=== PATIENT | female | born 1970 | race Caucasian/White ===

== ENCOUNTER 2021-06-13 05:54 | Day surgery (SDC) | payer OTHER, SELFPAY ==
[~2021-06-13] VITALS: Ht 149.9 cm; Wt 74.8 kg
[2021-06-13 06:59] LABS: HCG,QUAL RESULT NEGATIVE (NEGATIVE)
[2021-06-13] MEDS ORDERED: BUPIVACAINE /PF 0.25% 30 ML VIAL INJ ONE (07:41)
[2021-06-13] MEDS ORDERED: MIDAZOLAM HCL 5 MG/5 ML VIAL IVP ONE (07:41)
[2021-06-13] MEDS ORDERED: SUCCINYLCHOLINE CHLORIDE 20 MG/ML(QUELICIN) IVP ONE (07:41)
[2021-06-13] MEDS ORDERED: SUGAMMADEX SODIUM 200 MG/2 ML VIAL IV ONE (07:41)
[2021-06-13] MEDS ORDERED: GLYCOPYRROLATE 0.2 MG/ML VIAL IJ ONE (07:41)
[2021-06-13] MEDS ORDERED: DEXAMETHASONE SOD PHOSPHATE 4 MG/ML VIAL IVP ONE (07:41)
[2021-06-13] MEDS ORDERED: PHENYLEPHRINE HCL 10 MG/ML VIAL (NEOSYNEPHRINE) IV ONE (07:41)
[2021-06-13] MEDS ORDERED: CEFAZOLIN 2 GM IVPB PREMIX 50 ML IV ONE (07:41)
[2021-06-13] MEDS ORDERED: ONDANSETRON HCL 4 MG/2 ML VIAL IVP ONE (07:41)
[2021-06-13] MEDS ORDERED: fentaNYL CITRATE/PF 100 MCG/2 ML AMP IVP ONE (07:41)
[2021-06-13] MEDS ORDERED: LR 1,000 ML IV.SOLN IV ONE (07:41)
[2021-06-13] MEDS ORDERED: SEVOFLURANE 15 MIN GAS INH ONE (07:41)
[2021-06-13] MEDS ORDERED: PROPOFOL 200MG/ 20ML VIAL (DIPRIVAN) IV ONE (07:41)
[2021-06-13] MEDS ORDERED: ROCURONIUM BROMIDE 10 MG/ML (ZEMURON) IV ONE (07:41)
[2021-06-13] MEDS ORDERED: MEPERIDINE HCL/PF 25 MG/ML DISP.SYRIN IVP ONE (07:41)
[2021-06-13] MEDS ORDERED: WATER FOR IRRIGATION,STERILE 1,000 ML IRRIG.SOLN IR ONE (07:41)
[2021-06-13] MEDS ORDERED: KETOROLAC TROMETHAMINE 30 MG VIAL IVP ONE (07:41)
[2021-06-13] MEDS ORDERED: METOCLOPRAMIDE HCL 10 MG/2 ML VIAL IVP ONE (07:41)
[2021-06-13] MEDS ORDERED: OXYCODONE/ACETAMINOPHEN 5-325 TABLET PO PRN ×2 (09:30)
[2021-06-13] MEDS ORDERED: ONDANSETRON HCL 4 MG/2 ML VIAL IM PRN (09:30)
[2021-06-13] MEDS ORDERED: IBUPROFEN 800 MG TABLET PO PRN (09:30)
[2021-06-13 11:31] VITALS: BP_SYST 131
== END 2021-06-13 12:50 | disposition home or self-care (01) ==
LOC: SDS 05:54
PROVIDERS: ATTEND Obstetrics & Gynecology
DX: N95.0 Postmenopausal bleeding (principal); D25.9 Leiomyoma of uterus, unspecified; J45.909 Unspecified asthma, uncomplicated; E66.01 Morbid (severe) obesity due to excess calories; E78.5 Hyperlipidemia, unspecified; F32.9 Major depressive disorder, single episode, unspecified; Z79.899 Other long term (current) drug therapy; Z20.822 Contact with and (suspected) exposure to COVID-19
CPT/HCPCS: 36415 ×2; 58674; 84703; 86886 ×2; 86900 ×2; 86901 ×2; C1727; J0330; J0690; J1100; J1885; J2175; J2250; J2370; J2405; J2704; J2765; J3010; J3490 ×3; J7120; U0003

== ENCOUNTER 2022-07-28 11:25 | Inpatient (IN) | payer OTHER ==
[~2022-07-28] VITALS: Ht 180.3 cm; Wt 74.4 kg
[2022-07-28 11:29] VITALS: BP_SYST 128
--- NOTE | 2022-07-28 11:44 | NUR ---
Placed in room 05 . Placed on nurse monitoring, blood pressure machine and pulse oximeter. To gown for exam. Side rails up. Report given to Meryl GONZALEZ.
--- NOTE | 2022-07-28 12:05 | NUR ---
pt presents to ed WITH DAUGHTER FROM HOME WITH NONSTOP MENSES BLEEDING, PT C/O HAVING SOB, WEAKNESS AND RACING HEART, PT STATES SHE WAS USING LYSTEDA FROM 07/14 TO 07/19 2022, PT STATES SHE HAS HAD HER PERIOD FOR OVER 14 DAYS AND IS USING SUPER TAMPON ALONG WITH PAD. SHE C/O CONTINOUS MENSES. PT APPEARS PALE, VSS, RESPIRATIONS ARE EVEN AND UNLABORED, WILL CONT TO MONITOR
[2022-07-28 12:19] LABS: CALCIUM 8.5 mg/dL (8.4-11.0); CREATININE 0.85 mg/dL (0.55-1.30)
[2022-07-28 12:24] LABS: ALBUMIN 3.3 g/dL (3.4-4.8); TOTAL BILIRUBIN 0.3 mg/dL (0.0-1.0)
[2022-07-28 12:26] LABS: BASOPHILS # (AUTO) 0.1 K/uL (0.0-0.2); BASOPHILS % (AUTO) 0.4 % (0.0-2.0); EOSINOPHILS % (AUTO) 0.2 % (0.0-4.0); LYMPHOCYTES # (AUTO) 1.8 K/uL (1.0-5.5); LYMPHOCYTES % (AUTO) 11.2 % (20.5-51.5); MEAN CORPUSCULAR HEMOGLOBIN 31 pg (27-31); MEAN CORPUSCULAR HGB CONC 33 % (32-36); MEAN CORPUSCULAR VOLUME 94 fL (79.0-98.0); MONOCYTES # (AUTO) 0.9 K/uL (0.0-1.0); MONOCYTES % (AUTO) 5.5 % (1.7-9.3); NEUTROPHILS % (AUTO) 82.7 % (40.0-70.0); PLATELET COUNT (AUTO) 330 K/uL (130-430); RED CELL DISTRIBUTION WIDTH 13.8 % (9.0-15.0); WHITE BLOOD COUNT (AUTO) 15.7 K/uL (4.8-10.8)
[2022-07-28 12:35] LABS: HEMATOCRIT 19.6 % (36-48); HEMOGLOBIN 6.5 g/dL (12.0-16.0)
[2022-07-28 12:39] LABS: PROTHROMBIN TIME 10.3 SECS (9.5-12.5)
--- NOTE | 2022-07-28 14:23 | NUR ---
COVID SWAB COLLECTED AND SENT TO LAB
[2022-07-28] MEDS ORDERED: POTASSIUM CHLORIDE 20 MEQ TAB.PRT.SR PO ONE (14:45)
--- NOTE | 2022-07-28 14:47 | NUR ---
1440 BLOOD TRANSFUSTION STARTEDConsent signed per SHERI KENT agreeing to administration of blood. Blood has been type and crossmatched. Blood sent from blood bank. Information on unit of blood checked against patient wristband at bedside by two nurses. All information matches. Patient or responsible alliance party informed of potential complications associated with blood transfusion. Informed of possible transfusion reaction symptoms. Aware of need to notify nurse at once of itching, shortness of breath, flushing, feeling of impending doom, or other symptoms not previously present. Vital signs taken within 5 minutes prior to initiation of transfusion. RN will remain with patient for first 15 minutes of transfusion at which time vital signs will be re-assessed. WILL CONTINUE TO MONITOR
[2022-07-28 15:17] LABS: TOTAL IRON BIND. CAPACITY 348 ug/dL (250-450)
--- NOTE | 2022-07-28 15:32 | NUR ---
PT IS TOLERATING BLOOD TRANSFUSION WELL, VSS PT RESTING IN BED NO COMPLAINTS. WILL CONTINUE TO MONITOR.
--- NOTE | 2022-07-28 17:35 | NUR ---
Consent signed per SHERI KENT agreeing to administration of blood. Blood has been type and crossmatched. Blood sent from blood bank. Information on unit of blood checked against patient wristband at bedside by two nurses. All information matches. Patient or responsible republican informed of potential complications associated with blood transfusion. Informed of possible transfusion reaction symptoms. Aware of need to notify nurse at once of itching, shortness of breath, flushing, feeling of impending doom, or other symptoms not previously present. Vital signs taken within 5 minutes prior to initiation of transfusion. RN will remain with patient for first 15 minutes of transfusion at which time vital signs will be re-assessed.
[2022-07-28 17:56] LABS: BILIRUBIN,URINE NEGATIVE (NEGATIVE); BLOOD, URINE NEGATIVE (NEGATIVE); CLARITY/URINE CLEAR (CLEAR); COLOR,URINE YELLOW (YELLOW); GLUCOSE,URINE NEGATIVE (NEGATIVE); KETONES,URINE 1+ (NEGATIVE); LEUKOCYTE ESTERASE ,URINE NEGATIVE (NEGATIVE); NITRITE, URINE NEGATIVE (NEGATIVE); PH,URINE 5.5 (5.0-8.0); PROTEIN URINE NEGATIVE (NEGATIVE); UROBILINOGEN,URINE 0.2 (0.2-1.0)
--- NOTE | 2022-07-28 18:02 | NUR ---
PT TOLERATING BLOOD TRANSFUSION WELL, NO COMPLAINTS, VSS NAD. CALLED DR BURKETT ABOUT CLARIFICATION ABOUT DR HU [address] FITZGERALD 2 ADDITIONAL PRBC ORDER. PT IS PENDING DISCHARGE. AWAITING CALL AND WILL CONTINUE TO MONITOR PT.
--- NOTE | 2022-07-28 19:40 | NUR ---
LABS ARE SCHEDULED FOR POST TRANSFUSION. DR WALLS OVER TELEPHONE STATED AFTER LABS ARE DRAWN AND HEMOGLOBIN AND HEMATOCRIT OVER 8 PT CAN BE D/C AND FOLLOW UP WITH NEW LABS AFTER 2 DAYS AND REFERED TO OB. IF HEMOGLOBIN IS BELOW [address] WALLS FOR ORDERS.
[2022-07-28 21:21] LABS: BASOPHILS # (AUTO) 0.1 K/uL (0.0-0.2); BASOPHILS % (AUTO) 0.4 % (0.0-2.0); EOSINOPHILS % (AUTO) 0.2 % (0.0-4.0); HEMATOCRIT 27.3 % (36-48); HEMOGLOBIN 9.2 g/dL (12.0-16.0); LYMPHOCYTES # (AUTO) 4.1 K/uL (1.0-5.5); LYMPHOCYTES % (AUTO) 22.1 % (20.5-51.5); MEAN CORPUSCULAR HEMOGLOBIN 30 pg (27-31); MEAN CORPUSCULAR HGB CONC 34 % (32-36); MONOCYTES # (AUTO) 1.7 K/uL (0.0-1.0); MONOCYTES % (AUTO) 9.3 % (1.7-9.3); NEUTROPHILS # (AUTO) 12.4 K/uL (1.8-7.7); PLATELET COUNT (AUTO) 287 K/uL (130-430); RED BLOOD CELL COUNT(AUTO) 3.08 MIL/uL (4.2-6.2); RED CELL DISTRIBUTION WIDTH 15.3 % (9.0-15.0); WHITE BLOOD COUNT (AUTO) 18.3 K/uL (4.8-10.8)
[2022-07-28 21:22] LABS: MEAN CORPUSCULAR VOLUME 89 fL (79.0-98.0)
[2022-07-28 21:56] VITALS: BP_SYST 134
--- NOTE | 2022-07-28 21:56 | NUR ---
Patient given written and verbal discharge instructions and verbalizes understanding. ER MD discussed with patient the results and treatment provided. Patient in stable condition. ID arm band removed. IV catheter removed intact and dressing applied, no active bleeding. Patient educated on pain management and to follow up with PMD. Pain Scale . Opportunity for questions provided and answered. Medication side effect fact sheet provided.
[2022-07-29] MEDS ORDERED: cefTRIAXone 1 GM in D5W 50 ML IV ONE (09:00)
== END 2022-07-28 21:56 | disposition home or self-care (01) | DRG 760 ==
LOC: SED 11:25 → SMU 14:48
PROVIDERS: ADMIT Specialist; ATTEND Specialist
PROC: 30233N1 Transfusion of Nonautologous Red Blood Cells into Peripheral Vein, Percutaneous Approach (ICD-10-PCS; principal; 2022-07-28)
DX: D25.9 Leiomyoma of uterus, unspecified (principal); R65.10 Systemic inflammatory response syndrome (SIRS) of non-infectious origin without acute organ dysfunction; N93.8 Other specified abnormal uterine and vaginal bleeding; D64.9 Anemia, unspecified; Z20.822 Contact with and (suspected) exposure to COVID-19
CPT/HCPCS: 36415; 76856-TC; 80053; 81003; 82150; 83540; 83550; 83605; 83690; 85025; 85610-TC; 85730-TC; 86886; 86900; 86901; 86920; 99285; J7030; P9021